=== PATIENT | female | born 1970 | race Caucasian/White ===

== ENCOUNTER 2018-08-27 15:59 | Inpatient (IN) | payer MEDICAID ==
[~2018-08-27] VITALS: Ht 172.7 cm; Wt 60.4 kg
[2018-08-27] MEDS ORDERED: POLYETHYLENE GLYCOL 17 GM PACKET PO PRN (17:00)
[2018-08-27] MEDS ORDERED: BISACODYL 10 MG SUPP PR PRN (17:00)
[2018-08-27] MEDS ORDERED: DOCUSATE 100 MG CAPSULE PO PRN (17:00)
[2018-08-27] MEDS ORDERED: ONDANSETRON ODT 4 MG PO PRN (17:00)
[2018-08-27] MEDS ORDERED: LEVO25TA4 PO (17:03)
[2018-08-27] MEDS ORDERED: PLEASE ENTER HEIGHT AND WEIGHT MC SCH (17:30)
[2018-08-27] MEDS: PLEASE ENTER ALLERGIES MC SCH (17:30)
[2018-08-27] MEDS: BUPROPION SR 100 MG TABLET PO SCH (18:00)
[2018-08-27 21:04] VITALS: BP 113/80
[2018-08-27] MEDS: OLANZAPINE 10 MG TABLET PO SCH (22:12)
[2018-08-28] MEDS: PLEASE ENTER ALLERGIES MC SCH ×2 (01:30→10:41)
[2018-08-28] MEDS: LEVOTHYROXINE 25 MCG TABLET PO SCH (05:44)
[2018-08-28] MEDS: hydrOXyzine 10MG TABLET PO PRN ×3 (05:53→20:09)
[2018-08-28 05:59] LABS: BASOPHILS # (AUTO) 0.04 x10^3/uL (0-0.1); BASOPHILS % (AUTO) 1 % (0-1); EOSINOPHILS # (AUTO) 0.11 x10^3/uL (0-0.4); EOSINOPHILS % (AUTO) 1 % (1-7); LYMPHOCYTES # (AUTO) 3.06 x10^3/uL (1-3.4); LYMPHOCYTES % (AUTO) 38 % (22-44); MD NO; MEAN CORPUSCULAR HEMOGLOBIN 29.1 pg (27.0-34.8); MEAN CORPUSCULAR HGB CONC 32.9 g/dL (32.4-35.8); MEAN CORPUSCULAR VOLUME 88.5 fL (80-100); MEAN PLATELET VOLUME 7.5 fL (7.4-10.4); MONOCYTES # (AUTO) 0.78 x10^3/uL (0.2-0.8); MONOCYTES % (AUTO) 10 % (2-9); NEUTROPHILS # (AUTO) 4.17 x10^3/uL (1.8-6.8); NEUTROPHILS % (AUTO) 51 % (42-75); PLATELET COUNT 367 x10^3/uL (130-400); RED CELL DISTRIBUTION WIDTH 12.3 % (9.6-15.2)
[2018-08-28 06:00] LABS: HCT (SEDRATE) 42.8 % (34.6-47.8)
[2018-08-28 06:09] LABS: CHLORIDE 108 mmol/L (98-107)
[2018-08-28 06:52] LABS: ALANINE AMINOTRANSFERASE 13 U/L (12-78); ALBUMIN 3.4 g/dL (3.4-5.0); ALKALINE PHOSPHATASE 58 U/L (45-117); ANION GAP 9 mmol/L (5-15); BILIRUBIN,TOTAL 0.5 mg/dL (0.2-1.0); CALCIUM 8.9 mg/dL (8.5-10.1); CHOLESTEROL, TOTAL 144 mg/dL (140-239); CREATININE 0.88 mg/dL (0.55-1.02); TOTAL PROTEIN 7.3 g/dL (6.4-8.2); TRIGLYCERIDES 81 mg/dL (50-200); VLDL CHOLESTEROL 16 mg/dL (0-25)
[2018-08-28 06:53] LABS: CHOL/HDL RATIO 4.1; HDL CHOL % 24 % (28-40); HDL CHOLESTEROL (DIRECT) 35 mg/dL (40-60); LDL CHOLESTEROL,CALCULATED 93 mg/dL (54-169); LDL/HDL RATIO 2.7 (0.5-3.0); T4 (THYROXINE) 10.2 mcg/dL (4.8-13.9)
[2018-08-28 07:52] VITALS: BP 107/71
[2018-08-28] MEDS: SENNA/DOCUSATE TABLET PO SCH (08:47)
[2018-08-28] MEDS: BUPROPION SR 100 MG TABLET PO SCH ×2 (08:47→17:29)
[2018-08-28] MEDS: OLANZAPINE 5 MG TABLET PO SCH (08:47)
[2018-08-28] MEDS ORDERED: HYDR25TA11 PO (12:28)
[2018-08-28] MEDS ORDERED: ZOLP5TAB PO (12:28)
[2018-08-28] MEDS: POTASSIUM CHLORIDE 20 MEQ TAB.ER.PRT PO ONE ×2 (12:28→12:41)
[2018-08-28] MEDS ORDERED: MONT10TA9 PO (12:32)
[2018-08-28] MEDS ORDERED: ALPR0.5T PO (12:32)
[2018-08-28] MEDS ORDERED: PRAZ1CAP2 PO (12:57)
[2018-08-28] MEDS ORDERED: TIZA4CAP PO (12:57)
[2018-08-28] MEDS ORDERED: LORA10TA45 PO (12:57)
[2018-08-28] MEDS ORDERED: RANI150T4 PO (12:57)
[2018-08-28] MEDS ORDERED: GABA-826 PO (12:57)
[2018-08-28] MEDS ORDERED: BUPR150T6 PO (12:57)
[2018-08-28] MEDS ORDERED: TRAZ-96 PO (12:57)
[2018-08-28 18:34] LABS: MICROSCOPIC INDICATED
[2018-08-28 19:34] VITALS: BP 103/65
[2018-08-28] MEDS: METHOCARBAMOL 500 MG TABLET PO PRN (20:07)
[2018-08-28] MEDS: OLANZAPINE 10 MG TABLET PO SCH (20:07)
[2018-08-29] MEDS: LEVOTHYROXINE 25 MCG TABLET PO SCH (05:58)
[2018-08-29] MEDS: hydrOXyzine 10MG TABLET PO PRN ×2 (06:02→20:54)
[2018-08-29 07:32] VITALS: BP 115/78
[2018-08-29] MEDS: SENNA/DOCUSATE TABLET PO SCH ×2 (08:42→08:48)
[2018-08-29] MEDS: OLANZAPINE 5 MG TABLET PO SCH (08:43)
[2018-08-29] MEDS: BUPROPION SR 100 MG TABLET PO SCH ×2 (08:43→17:36)
[2018-08-29] MEDS: METHOCARBAMOL 500 MG TABLET PO PRN ×2 (08:51→20:55)
[2018-08-29] MEDS: ACETAMINOPHEN 325 MG TABLET PO PRN (17:36)
[2018-08-29 20:03] VITALS: BP 99/65
[2018-08-29] MEDS: OLANZAPINE 10 MG TABLET PO SCH (20:55)
[2018-08-30] MEDS: hydrOXyzine 10MG TABLET PO PRN (02:46)
[2018-08-30] MEDS: LEVOTHYROXINE 25 MCG TABLET PO SCH (06:09)
[2018-08-30 07:16] VITALS: BP 133/65
[2018-08-30] MEDS: OLANZAPINE 5 MG TABLET PO SCH (08:37)
[2018-08-30] MEDS: BUPROPION SR 100 MG TABLET PO SCH ×2 (08:38→17:28)
[2018-08-30] MEDS: SENNA/DOCUSATE TABLET PO SCH (08:38)
[2018-08-30] MEDS: METHOCARBAMOL 500 MG TABLET PO PRN (18:08)
[2018-08-30 19:22] VITALS: BP 90/53
[2018-08-30] MEDS: OLANZAPINE 10 MG TABLET PO SCH (20:39)
[2018-08-30] MEDS: ACETAMINOPHEN 325 MG TABLET PO PRN (20:44)
[2018-08-31] MEDS: LEVOTHYROXINE 25 MCG TABLET PO SCH (05:48)
[2018-08-31 07:38] VITALS: BP 114/78
[2018-08-31] MEDS: BUPROPION SR 100 MG TABLET PO SCH ×2 (08:35→17:29)
[2018-08-31] MEDS: OLANZAPINE 5 MG TABLET PO SCH (08:35)
[2018-08-31] MEDS: SENNA/DOCUSATE TABLET PO SCH (08:38)
[2018-08-31 19:17] VITALS: BP 100/61
[2018-08-31] MEDS: OLANZAPINE 10 MG TABLET PO SCH (20:13)
[2018-09-01] MEDS: METHOCARBAMOL 500 MG TABLET PO PRN (01:19)
[2018-09-01] MEDS: LEVOTHYROXINE 25 MCG TABLET PO SCH (06:01)
[2018-09-01 07:46] VITALS: BP 114/70
[2018-09-01] MEDS: BUPROPION SR 100 MG TABLET PO SCH ×2 (08:18→18:23)
[2018-09-01] MEDS: OLANZAPINE 5 MG TABLET PO SCH (08:19)
[2018-09-01] MEDS: ACETAMINOPHEN 325 MG TABLET PO PRN (08:19)
[2018-09-01] MEDS: SENNA/DOCUSATE TABLET PO SCH (08:21)
[2018-09-01] MEDS: OLANZAPINE 10 MG TABLET PO SCH (20:55)
[2018-09-02] MEDS: LEVOTHYROXINE 25 MCG TABLET PO SCH (05:50)
[2018-09-02 07:58] VITALS: BP 111/73
[2018-09-02] MEDS: BUPROPION SR 100 MG TABLET PO SCH ×2 (09:22→17:07)
[2018-09-02] MEDS: OLANZAPINE 5 MG TABLET PO SCH (09:22)
[2018-09-02] MEDS: SENNA/DOCUSATE TABLET PO SCH (09:23)
[2018-09-02] MEDS: METHOCARBAMOL 500 MG TABLET PO PRN (09:29)
[2018-09-02 19:50] VITALS: BP 100/60
[2018-09-02] MEDS: OLANZAPINE 10 MG TABLET PO SCH (20:09)
[2018-09-03] MEDS: ACETAMINOPHEN 325 MG TABLET PO PRN ×3 (00:45→20:03)
[2018-09-03] MEDS: METHOCARBAMOL 500 MG TABLET PO PRN ×2 (00:45→18:04)
[2018-09-03] MEDS: LEVOTHYROXINE 25 MCG TABLET PO SCH (05:38)
[2018-09-03 07:30] VITALS: BP 109/77
[2018-09-03] MEDS: SENNA/DOCUSATE TABLET PO SCH ×2 (08:30→08:34)
[2018-09-03] MEDS: OLANZAPINE 5 MG TABLET PO SCH (08:30)
[2018-09-03] MEDS: BUPROPION SR 100 MG TABLET PO SCH ×2 (08:30→17:05)
[2018-09-03] MEDS ORDERED: BUPR-173 PO (18:28)
[2018-09-03] MEDS ORDERED: PRAZ1CAP2 PO (18:28)
[2018-09-03] MEDS ORDERED: OLAN10TA9 PO (18:28)
[2018-09-03] MEDS ORDERED: LEVO25TA2 PO (18:28)
[2018-09-03] MEDS ORDERED: LORA10TA45 PO (18:28)
[2018-09-03] MEDS ORDERED: HYDR25TA11 PO (18:28)
[2018-09-03] MEDS ORDERED: OLAN5TAB9 PO (18:28)
[2018-09-03 19:36] VITALS: BP 109/76
[2018-09-03] MEDS: OLANZAPINE 10 MG TABLET PO SCH (20:02)
[2018-09-04] MEDS: LEVOTHYROXINE 25 MCG TABLET PO SCH (05:12)
[2018-09-04] MEDS: ACETAMINOPHEN 325 MG TABLET PO PRN (05:12)
[2018-09-04 07:03] VITALS: BP 113/70
[2018-09-04] MEDS: SENNA/DOCUSATE TABLET PO SCH (09:00)
[2018-09-04] MEDS: OLANZAPINE 5 MG TABLET PO SCH (09:06)
[2018-09-04] MEDS: BUPROPION SR 100 MG TABLET PO SCH (09:06)
== END 2018-09-04 13:10 | disposition home or self-care (01) | DRG 885 ==
LOC: 3E 16:39
PROVIDERS: ADMIT Psychiatry & Neurology Psychosomatic Medicine; ATTEND Psychiatry & Neurology Psychosomatic Medicine
DX: F25.0 Schizoaffective disorder, bipolar type (principal); G89.29 Other chronic pain; E03.9 Hypothyroidism, unspecified; E87.6 Hypokalemia; F19.10 Other psychoactive substance abuse, uncomplicated; F41.1 Generalized anxiety disorder; D72.829 Elevated white blood cell count, unspecified; F43.10 Post-traumatic stress disorder, unspecified; Z88.2 Allergy status to sulfonamides; Z98.891 History of uterine scar from previous surgery
CPT/HCPCS: 36415; 71045; 80053; 80061; 81001; 82140; 82607; 84436; 84443; 85025; 85651; 86592; 93005; Q0177